=== PATIENT | male | born 1950 | race Caucasian/White ===

== ENCOUNTER 2021-08-29 14:47 | Emergency (ER) | payer OTHER ==
[2021-08-29 15:41] VITALS: TEMP 98.7; BMI 27.4
[2021-08-29 17:08] LABS: BASO % 0.7 % (0-2.0); EOS % 0.6 % (0-4.5); HEMATOCRIT 46.9 % (35.4-49); HEMOGLOBIN 16.1 GM/dL (11.7-16.9); MCH 31.3 pg (25.7-33.7); MCHC 34.3 g/dl (32.0-35.9); MEAN CELL VOLUME 91.4 fl (80-96); MEAN PLT VOLUME 7.6 fl (7.5-11.1); MONO % 8.4 % (3.8-10.2); NEUT % 70.3 % (42.8-82.8); PLATELET COUNT 281 10^3/uL (134-434); RBC 5.13 M/mm3 (4.00-5.60); RDW 12.9 % (11.9-15.9)
[2021-08-29 17:15] LABS: INR 0.97 (0.83-1.09); PROTHROMBIN TIME (PATIENT) 11.1 SEC (9.7-13.0)
[2021-08-29 17:18] LABS: ACTIVATED PTT 33.4 SECONDS (25.2-36.5)
[2021-08-29 17:35] LABS: CHLORIDE 105 mmol/L (98-107); SODIUM 138 mmol/L (136-145)
[2021-08-29 17:37] LABS: ALBUMIN 4.4 g/dl (3.4-5.0); ANION GAP 5 MMOL/L (8-16); BLOOD UREA NITROGEN 17.9 mg/dL (7-18); CALCIUM 9.3 mg/dL (8.5-10.1); CO2 28 mmol/L (21-32); GLUCOSE,RANDOM 104 mg/dL (74-106)
[2021-08-29 17:40] LABS: CREATININE 0.8 mg/dL (0.55-1.3); SGOT/AST 19 U/L (15-37); SGPT/ALT 26 U/L (13-61)
[2021-08-29 17:42] LABS: BILIRUBIN,TOTAL 0.4 mg/dL (0.2-1); TOT PROT 7.7 g/dl (6.4-8.2)
[2021-08-29 17:43] LABS: ALK PHOS 125 U/L (45-117)
[2021-08-29 17:53] LABS: ERYTHROCYTE SEDIMENTATION RATE 13 mm/hr (0-20)
[2021-08-30 03:38] VITALS: BP 155/85; PULSE 74
== END 2021-08-30 03:38 | disposition short-term general hospital (02) ==
LOC: JER 14:47
DX: H57.89 Other specified disorders of eye and adnexa (principal)
CPT/HCPCS: 0241U-QW; 36415; 70450-TC; 70540; 70551-TC; 80053; 85025; 85610; 85651; 85730; 86140; 93005; 93010; 99284-25